=== PATIENT | female | born 2000 | race Asian ===

== ENCOUNTER 2023-08-15 18:17 | Emergency (ER) | payer OTHER, SELFPAY ==
--- NOTE | ~2023-08-15 | CT_ITS ---
EXAMINATION: CT brain wo con INDICATION: Head injury COMPARISON: None TECHNIQUE: Standard unenhanced head CT. The dose-length product (DLP) was 605.33 mGy-cm. The mA was a djusted according to patient size. Iterative reconstruction technique was employed. FINDINGS: No intracranial hemorrhage, acute infarction, or abnormal mass lesion. The ventricles are n ormal. No abnormal mass effect or midline shift. The anguiano-white matter differentiation is normal. The basal cisterns are patent. The orbits are normal. The paranasal sinuses, mastoids and calvarium are normal. IMPRESSION: 1. No acute intracranial abnormality. Reviewed, dictated and finalized at location F.
--- NOTE | ~2023-08-15 | CT_ITS ---
EXAMINATION: CT thoracic spine wo con DATE: 08/15/2023 20:10 INDICATION: Upper back pain TECHNIQUE: Computed tomography (CT) of the thoracic spine was performed without intravenous contrast. The dose-length product (DLP) was 591.28 mGy-cm. Iterative reconstruction was used. COMPARISON: None FINDINGS: No fracture, dislocation, or subluxation. The vertebral body heights, alignment, and interv ertebral disc spaces are normal. The paravertebral soft tissues are unremarkable. IMPRESSION: 1. No acute osseous abnormality. Reviewed, dictated and finalized at location F.
--- NOTE | ~2023-08-15 | CT_ITS ---
EXAMINATION: CT cervical spine wo con DATE: 08/15/2023 20:10 INDICATION: Head injury TECHNIQUE: Computed tomography (CT) of the cervical spine was performed without intravenous contrast. The dose-length product (DLP) was 139.82 mGy-cm. Automated exposure control and iterative reconstruc tion technique were employed. COMPARISON: None FINDINGS: Bone alignment is normal. There is no fracture. The odontoid process is intact. The vertebr al body heights and intervertebral disc spaces are maintained. The prevertebral soft tissues are norm al. IMPRESSION: 1. No acute osseous abnormality. Reviewed, dictated and finalized at location F.
[2023-08-15 18:18] VITALS: BP 138/87; PULSE 77; RESP 20; TEMP 36.6; O2SAT 100
--- NOTE | 2023-08-15 18:35 | ED.HEATRA ---
HPI - Head Injury General Chief complaint: Head Injury Stated complaint: head/shoulder injury Time Seen by Provider: 08/15/23 18:17 Source: patient Mode of arrival: EMS Limitations: no limitations History of Present Illness HPI Narrative: Patient is a 23-year-old female who presents the ED via EMS with report of head injury. Patient reports she was cheerleading prior to arrival and was the flyer on top of a double pyramid (approx 7 feet high). She performed a back flip, however states the lower groups did not catch her. She landed directly on her head and neck backwards. She is unsure if she lost consciousness. She complains of pain to the back of her head, neck, upper back/shoulders. She also reports nausea and dizziness, denies vomiting. Denies vision changes, lower back pain, abdominal pain, chest pain, shortness of breath. Related Data Allergies Allergy/AdvReac Type Severity Reaction Status Date / Time No Known Allergies Allergy Verified 08/15/23 18:27 Review of Systems Review of Systems: CONSTITUTIONAL: Denies fever, chills, or sweats. EYES: Denies visual changes. CARDIOVASCULAR: Denies chest pain. RESPIRATORY: Denies dyspnea. GASTROINTESTINAL: See HPI. MUSCULOSKELETAL: See HPI. NEUROLOGIC: See HPI. All systems reviewed & are unremarkable except as noted in HPI and below Exam Narrative: GENERAL: Well appearing, thin, non-toxic, in no acute distress. HEAD: Normocephalic, atraumatic. EYES: PERRL/EOMI, conjunctiva clear. NECK: Supple. No adenopathy, no masses. C-collar in place. TTP along midline cervical spine, but no palpable deformities/bony step offs. RESPIRATORY: Airway patent, respirations nonlabored. Clear to auscultation bilaterally, no rales, rhonchi, wheezing. CARDIOVASCULAR: Regular rate and rhythm without murmurs, rubs, or gallops. Radial pulses 2+ and equal bilaterally. ABDOMINAL: Soft, nontender, nondistended, no hepatosplenomegaly. Normoactive BS. MUSCULOSKELETAL: Moves all extremities. Strength/ROM intact without gross deformities. Mild tenderness along upper thoracic midline spine. Again no palpable deformities. No tenderness throughout lumbar spine. SKIN: Warm, dry, normal color. No rashes. NEURO: A&O X3. Speech clear. Cranial nerves II-XII grossly intact. Steady gait. No ataxic movements. Sensation intact throughout extremities. Strength equal in upper and lower extremities bilaterally. PSYCHIATRIC: Appropriate mood and affect. Normal interaction. Course Vital Signs Vital signs: Vital Signs Temperature 98 F 08/15/23 18:18 Pulse Rate 77 08/15/23 18:18 Respiratory Rate 20 08/15/23 18:18 Blood Pressure 138/87 08/15/23 18:18 Pulse Oximetry 100 08/15/23 18:18 Oxygen Delivery Room Air 08/15/23 18:18 Temperature 98 F 08/15/23 18:18 Pulse Rate 83 08/15/23 21:30 Respiratory Rate 12 08/15/23 21:30 Blood Pressure 127/86 08/15/23 21:30 Pulse Oximetry 100 08/15/23 21:30 Oxygen Delivery Room Air 08/15/23 18:18 MDM - Head Injury MDM Narrative Medical decision making narrative: Patient presented to ED status post head injury from elevated height, complaining of head, neck, upper back pain. Placed in c-collar prior to arrival. Patient neurologically intact. No focal deficits seen on exam. Vitals stable. CT brain negative. CT cervical spine negative. C-collar removed by myself. CT thoracic spine also negative. No traumatic findings. Patient denying any other areas of pain on reevaluation. She was ambulatory throughout the ED without issue. Discussed possibility of concussion and management of such. Discussed musculoskeletal strain, Tylenol/ibuprofen, muscle relaxers as needed. Advise close follow-up with primary care doctor for further evaluation, medical release back to sports. Patient given strict return precautions. Discharged in stable condition. Medical Records Attestation: I reviewed the patient's medical records. Lab Data Attestation: I rev
[2023-08-15] MEDS: MORPHINE SULFATE (*CRX) 2 MG/ML INJ IV PUSH (18:41)
[2023-08-15] MEDS: ONDANSETRON INJ 4 MG/2 ML VIAL IV PUSH (18:41)
[2023-08-15 19:30] VITALS: BP 129/73; PULSE 79; RESP 15; O2SAT 100
--- NOTE | 2023-08-15 19:48 | PC.NURSE ---
Report from ANTONIO Vega. Assumed care.
[2023-08-15 20:23] LABS: Beta HCG Quantitative < 2.39 mIU/ML
[2023-08-15 20:30] VITALS: BP 142/91; PULSE 87; RESP 15; O2SAT 100
[2023-08-15 21:30] VITALS: BP 127/86; PULSE 83; RESP 12; O2SAT 100
[2023-08-15] MEDS: CYCLOBENZAPRINE HCL 5 MG TABLET PO (21:38)
[2023-08-15] MEDS: KETOROLAC 30 MG/ML VIAL (*BKC) IV PUSH (21:38)
--- NOTE | 2023-08-15 21:45 | PC.NURSE ---
Ambulatory in dept with steady gait
== END 2023-08-15 21:56 | disposition home or self-care (01) ==
PROVIDERS: Emergency Provider Physician Assistant
DX: S09.90XA Unspecified injury of head, initial encounter (principal); S16.1XXA Strain of muscle, fascia and tendon at neck level, initial encounter; W17.89XA Other fall from one level to another, initial encounter; Y93.45 Activity, cheerleading
CPT/HCPCS: 36415; 70450; 72125; 72128; 84702; 96374; 96375; 99284; A9270; J1885; J2270; J2405